=== PATIENT | female | born 1965 | race American Indian/Alaskan Native ===

== ENCOUNTER 2020-07-07 12:18 | Emergency (ER) | payer SELFPAY ==
[2020-07-07 13:20] LABS: Basophils % (Auto) 0.5 % (0.0-1.8); Eosinophils # (Auto) 0.2 K/mm3 (0.0-0.4); Eosinophils % (Auto) 2.9 % (0.0-4.3); Hematocrit 38.2 % (30.3-42.9); Hemoglobin 12.8 gm/dl (10.1-14.3); Lymphocytes # (Auto) 0.9 K/mm3 (1.2-5.4); Lymphocytes % (Auto) 14.8 % (13.4-35.0); Mean Corpuscular HGB Conc 34 % (30-34); Mean Corpuscular Volume 89 fl (79-97); Monocytes # (Auto) 0.6 K/mm3 (0.0-0.8); Monocytes % (Auto) 9.8 % (0.0-7.3); Platelet Count 147 K/mm3 (140-440); Red Blood Count 4.31 M/mm3 (3.65-5.03); Red Cell Distribution Width 14.8 % (13.2-15.2)
[2020-07-07 13:22] LABS: Bacteria,Urine 1+ /HPF (Negative); Bilirubin,Urine NEG (Negative); Blood,Urine NEG (Negative); Color,Urine Yellow (Yellow); Hyaline Casts,Urine 14 /LPF; Mucus,Urine FEW /HPF
[2020-07-07 13:32] LABS: BUN/Creatinine Ratio 16; Blood Urea Nitrogen 16 mg/dL (7-17); Calcium 8.4 mg/dL (8.4-10.2); Hemolysis Index 2
[2020-07-07 13:33] LABS: Amphetamine Screen,Urine Negative; Benzodiazepines Screen,Urine Negative; Cannabinoid Screen,Urine Negative; Cocaine Screen,Urine Negative; Methadone Screen,Urine Negative; Opiate Screen,Urine Negative
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
[2020-07-07] MEDS ORDERED: ALUM-MAG HYDROXIDE-SIMETHICONE 200-200-20MG/5ML ORAL LIQD 30 ML PO PRN (13:43)
[2020-07-07] MEDS ORDERED: MAGNESIUM HYDROXIDE (MOM) ORAL LIQD UDC PO PRN (13:43)
[2020-07-07] MEDS ORDERED: ACETAMINOPHEN 325 MG TAB PO PRN (13:43)
[2020-07-07] MEDS: ZIPRASIDONE 20 MG CAP PO SCH (23:18)
[2020-07-08] MEDS: ZIPRASIDONE 20 MG CAP PO SCH ×2 (10:41→21:38)
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
[2020-07-08] MEDS: DIVALPROEX DR 125 MG TAB PO SCH ×2 (12:33→21:37)
[2020-07-08] MEDS: risperiDONE 0.25 MG TAB PO SCH ×2 (12:33→21:35)
[2020-07-08] MEDS ORDERED: traZODone 50 MG TAB PO SCH (22:00)
[2020-07-09 07:37] VITALS: BP 150/98
== END 2020-07-09 07:42 ==
LOC: ED 12:18
DX: F20.9 Schizophrenia, unspecified (principal); I10 Essential (primary) hypertension; Z00.8 Encounter for other general examination; Z98.890 Other specified postprocedural states
CPT/HCPCS: 36415; 80048; 80307; 80320; 81001; 85025; G0480